=== PATIENT | male | born 1965 | race African-American/Black ===

== ENCOUNTER 2020-10-08 12:22 | Inpatient (IN) | payer OTHER ==
[~2020-10-08] VITALS: Ht 180.3 cm; Wt 78.0 kg
[~2020-10-08 12:22] MED LIST: CIPROFLOXACIN500 M1 PO; NORCO 5-325 TA1 EACH PO; ZOFRAN ODT4 MG PO
[2020-10-08 12:23] VITALS: BP 143/84
[2020-10-08 13:03] LABS: HEMOGLOBIN 12.3 gm/dL (14.0-18.0); WBC 9.2 thou/uL (4.0-11.0)
[2020-10-08 13:04] LABS: HEMATOCRIT 34.9 % (42.0-52.0); MCH 31.7 pg (26.0-34.0); MCHC 35.3 g/dL (28.0-37.0); MCV 89.8 fL (80.0-100.0); PLATELET COUNT 316 thou/uL (150-400); RBC 3.89 mil/uL (4.50-6.00); RDW 24.4 % (10.5-14.5)
[2020-10-08 13:39] LABS: CALCIUM 7.4 mg/dL (8.5-10.1); POTASSIUM 3.3 mmol/L (3.5-5.1)
[2020-10-08 13:46] LABS: ALBUMIN 1.2 g/dL (3.4-5.0); TOTAL BILIRUBIN 2.5 mg/dL (0.2-1.0); TOTAL PROTEIN 6.3 g/dL (6.4-8.2)
[2020-10-08 13:56] LABS: URINE BILIRUBIN 3+ (Negative); URINE BLOOD NEGATIVE (Negative); URINE CLARITY CLEAR; URINE COLOR BROWN; URINE GLUCOSE-RANDOM* TRACE (Negative); URINE KETONES TRACE (Negative); URINE LEUKOCYTES-REFLEX TRACE (Negative); URINE PROTEIN (DIPSTICK) 1+ (Negative); URINE SPECIFIC GRAVITY >= 1.030 (1.005-1.035)
[2020-10-08 13:58] LABS: ICTOTEST (BILI CONFIRMATORY) Positive (Negative); URINE NITRITE-REFLEX POSITIVE (Negative)
[2020-10-08 14:19] LABS: HYALINE CASTS 0-3 Few /LPF (None Seen); SQUAMOUS 4-10 Moderate /LPF (0-3)
[2020-10-08 14:20] LABS: AMORPHOUS URATES Few /LPF (None Seen); URINE RBC 1-2 Rare /HPF (NONE SEEN); URINE WBC-REFLEX 0-5 Rare /HPF (0-5)
[2020-10-08 14:48] VITALS: BP 139/88
[2020-10-08 15:01] LABS: ABSOLUTE NEUTROPHILS 6.5 thou/uL (1.4-8.2)
[2020-10-08 15:02] LABS: ANISOCYTOSIS 1+; PLATELET ESTIMATE NORMAL; TARGET CELLS 1+
[2020-10-08 15:45] VITALS: BP 143/83
[2020-10-08 16:04] VITALS: BP 145/85
--- NOTE | 2020-10-08 16:54 | NUR ---
PATIENT ARRIVED TO UNIT AT APPROX. 1600. VSS; C/O LOWER BACK PAIN. FLUIDS HUNG ON L AC & NO ISSUES. ABX ALSO INFUSING. PATIENT IS A&OX4 AND A LOW FALL RISK, HX. & EDUCATION COMPLETED. NEW ORDERS ACKNOWLEDED. ON REGULAR DIET BUT WILL BE NPO AFTER MIDNIGHT. PAIN CONTROLLED W PRN NORCO. VOICES NO FURTHER NEEDS. PARACENTESIS TO BE DONE TOMORROW. WILL CONTINUE TO MONITOR
--- NOTE | 2020-10-08 17:02 | NUR ---
55-year-old male presents to the ED on 10-08-20 with a history of hypertension currently not taking medication, tobacco use, excessive alcohol use. And complaints of persistent nausea, vomiting, abdominal discomfort. Patient reports intermittent symptoms of abdomen discomfort, nausea over the last few months. Patient reports her symptoms progressively gotten worse last couple days. CT abdomen revealed several bowel wall thickening, infection versus neoplastic process, moderate amount of abdominal ascites, nodular fat stranding throughout the upper mesentery concerning for peritoneal carcinomatosis. Per the patient and assessment the patient states he is not vaccinated. The patient has been admitted for Abdominal pain, nausea, vomiting, UTI, Hypokalemia, Elevated FFT's and bilirubin. Consult for GI has been placed. Thoracentesis planned for 10-09-20. Per ED assessment and MD interactions patient is A&O x4. His spouse is listed as Eduardo Lemus at [phone]. CM will continue to follow for discharge needs as plan of care by medical team is reviewed for discharge need.
[2020-10-08 17:25] LABS: INR 1.52; PROTIME 16.2 Seconds (10.5-12.1)
[2020-10-08 19:48] VITALS: BP 121/84
[2020-10-09 02:28] LABS: MCV 92.4 fL (80.0-100.0)
[2020-10-09 02:30] LABS: HEMATOCRIT 30.7 % (42.0-52.0); HEMOGLOBIN 11.1 gm/dL (14.0-18.0); MCH 33.3 pg (26.0-34.0); MCHC 36.1 g/dL (28.0-37.0); RBC 3.32 mil/uL (4.50-6.00); RDW 22.5 % (10.5-14.5); WBC 7.7 thou/uL (4.0-11.0)
[2020-10-09 02:36] LABS: PLATELET COUNT 150 thou/uL (150-400)
[2020-10-09 02:53] LABS: ALBUMIN 1.2 g/dL (3.4-5.0); CALCIUM 7.3 mg/dL (8.5-10.1); MAGNESIUM 1.5 mg/dL (1.8-2.4); POTASSIUM 3.7 mmol/L (3.5-5.1); TOTAL BILIRUBIN 2.1 mg/dL (0.2-1.0); TOTAL PROTEIN 6.4 g/dL (6.4-8.2)
[2020-10-09 03:24] LABS: ABSOLUTE NEUTROPHILS 4.6 thou/uL (1.4-8.2); ANISOCYTOSIS 3+; NUCLEATED RBCS 1 /100WBC; TARGET CELLS 3+
--- NOTE | 2020-10-09 03:44 | NUR ---
Today this pt has had stable VS and has had some stated pain in which it was taken care of with medication. He has been asleep for most of the night using the urinal at the bedside with no diarrhea this shift. He has been tolerating his fluids well and he has been NPO since midnight for his pending procedure later today.
[2020-10-09 08:45] VITALS: BP 124/80
[2020-10-09 09:00] VITALS: BP 105/62
[2020-10-09 10:00] VITALS: BP 122/72
[2020-10-09 10:04] LABS: CLARITY CLEAR; COLOR YELLOW; SOURCE ABDOMINAL; TOTAL VOLUME 60 mL
--- NOTE | 2020-10-09 11:16 | NUR ---
met with patient who admits with ETOH/Abd pain. 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 Lives in independent home with . He cont to drive. He is unsure if he has health insurance. Requested casemgt sp with . Sp with she reports she is unsure. She has a call into employment. She also works at same employment. She reports patient has no PCP. Gave [facility] and [facility].
[2020-10-09 11:19] LABS: BF NUCLEATED CELLS 228 /mm3; BF RBC 52 /mm3
[2020-10-09 13:16] LABS: BF MACROPHAGE 29 %; BF NEUTROPHILS 54 %
[2020-10-09 15:25] VITALS: BP 103/65
--- NOTE | 2020-10-09 17:21 | NUR ---
A/O X 4. Room air. AD MICHAELA. Cont B/B-urinal at bedside. Left AC IV patent, dressing dry, clean and intact. NS infusing @ 100 mls/hr. [place] last given for ABD pain @ 1630. Requested to "Step outside for some air" nurse explained to patient he's unable to do that during this time. He states he understands. New left upper arm nicotine patch placed. Patient has been itching throughout the day and nurse spoke with Dr. Huang and patient is not wanting to take anything for it. Itching has subsided. Patient to D/C home with HH per case managment tomorrow.
[2020-10-09 20:01] VITALS: BP 116/79
--- NOTE | 2020-10-10 04:19 | NUR ---
TODAY THIS PT HAS STATED SOME PAIN IN WHICH IT WAS TAKEN CARE OF WITH MEDICATION. HE HAS BEEN TOLERATING HIS FLUIDS WELL AND ASLEEP FOR MOST OF THE NIGHT. HE HAS BEEN OTHERWISE WALKING AROUND IN THE ROOM AND HAS PULLED OUT HIS IV BY ACCIDENT AND HE REFUSED REINSERTION I WILL REASSESS LATER THIS SHIFT. OTHERWISE HE AWAITS FOR THE NEXT PLAN.
[2020-10-10 06:22] LABS: HEMATOCRIT 30.2 % (42.0-52.0); HEMOGLOBIN 10.5 gm/dL (14.0-18.0); MCH 32.3 pg (26.0-34.0); MCHC 34.7 g/dL (28.0-37.0); MCV 93.1 fL (80.0-100.0); RBC 3.25 mil/uL (4.50-6.00); WBC 7.3 thou/uL (4.0-11.0)
[2020-10-10 06:39] LABS: ALBUMIN 1.3 g/dL (3.4-5.0); CALCIUM 7.1 mg/dL (8.5-10.1); CREATININE 1.2 mg/dL (0.7-1.3); POTASSIUM 3.5 mmol/L (3.5-5.1); TOTAL BILIRUBIN 1.7 mg/dL (0.2-1.0); TOTAL PROTEIN 6.8 g/dL (6.4-8.2)
[2020-10-10 08:59] LABS: SOURCE ABDOMINAL
[2020-10-10] MEDS ORDERED: HYDROXYZINE HCL25 M2 PO (10:20)
[2020-10-10] MEDS ORDERED: PROTONIX40 M2 PO (10:20)
[2020-10-10] MEDS ORDERED: ZOFRAN ODT4 MG PO (10:20)
[2020-10-10 10:32] VITALS: BP 116/79
--- NOTE | 2020-10-10 10:50 | NUR ---
Assumed pt care this am no IV access and refused for IV to be placed. Am meds not given pt was wanting to go ama early in the am. Dr. Huang visited, DC orders placed, instructions given to the pt and all prescriptions sent to the phaarmacy. POC followed with no signs or verblizations of distress noted. Pt is now dc.
[2020-10-10 19:06] LABS: BODY FLUID ALBUMIN 0.2 g/dL (Not Estab.); BODY FLUID AMYLASE 19 U/L (()); BODY FLUID GLUCOSE 65 mg/dL (()); BODY FLUID LDH 48 IU/L (()); BODY FLUID PROTEIN 0.8 g/dL (())
== END 2020-10-10 11:21 | disposition home health service (06) | DRG 383 ==
LOC: ER 12:22 → EROBS 14:41 → 4W 15:46
PROVIDERS: Nurse Practitioner; Nurse Practitioner Family; ADMIT Hospitalist; ATTEND Hospitalist
PROC: 0DB68ZX Excision of Stomach, Via Natural or Artificial Opening Endoscopic, Diagnostic (ICD-10-PCS; principal; 2020-10-09)
PROC: 0W9G3ZZ Drainage of Peritoneal Cavity, Percutaneous Approach (ICD-10-PCS; principal; 2020-10-09)
DX: K25.9 Gastric ulcer, unspecified as acute or chronic, without hemorrhage or perforation (principal); E43 Unspecified severe protein-calorie malnutrition; C78.6 Secondary malignant neoplasm of retroperitoneum and peritoneum; R18.8 Other ascites; N39.0 Urinary tract infection, site not specified; R18.0 Malignant ascites; K29.70 Gastritis, unspecified, without bleeding; R63.4 Abnormal weight loss; E87.6 Hypokalemia; R79.89 Other specified abnormal findings of blood chemistry; I10 Essential (primary) hypertension; F17.210 Nicotine dependence, cigarettes, uncomplicated; F10.10 Alcohol abuse, uncomplicated; Y90.9 Presence of alcohol in blood, level not specified; K44.9 Diaphragmatic hernia without obstruction or gangrene; E88.09 Other disorders of plasma-protein metabolism, not elsewhere classified; Z20.822 Contact with and (suspected) exposure to COVID-19; Z79.899 Other long term (current) drug therapy; Z68.24 Body mass index [BMI] 24.0-24.9, adult
CPT/HCPCS: 10040; 70005

== ENCOUNTER 2020-10-10 15:37 | Emergency (ER) | payer OTHER ==
[~2020-10-10] VITALS: Ht 180.3 cm; Wt 70.3 kg
[~2020-10-10 15:37] MED LIST changes: +HYDROXYZINE HCL25 M2 PO; +PROTONIX40 M2 PO
[2020-10-10 17:52] VITALS: BP 133/79
== END 2020-10-10 17:55 | disposition home or self-care (01) ==
LOC: ER 15:37
DX: R18.8 Other ascites (principal); R14.0 Abdominal distension (gaseous); I10 Essential (primary) hypertension; F17.200 Nicotine dependence, unspecified, uncomplicated; Z79.899 Other long term (current) drug therapy

== ENCOUNTER 2021-02-20 09:27 | Inpatient (IN) | payer OTHER ==
[~2021-02-20] VITALS: Ht 180.3 cm; Wt 68.0 kg
[2021-02-20 10:07] VITALS: BP 113/62
[2021-02-20 12:38] LABS: HEMATOCRIT 31.2 % (42.0-52.0); HEMOGLOBIN 10.4 gm/dL (14.0-18.0); MCH 32.2 pg (26.0-34.0); MCHC 33.4 g/dL (28.0-37.0); MCV 96.2 fL (80.0-100.0); RBC 3.24 mil/uL (4.50-6.00); RDW 17.9 % (10.5-14.5); WBC 10.3 thou/uL (4.0-11.0)
[2021-02-20 12:50] LABS: ANION GAP 10 mmol/L (7-16); BUN 63 mg/dL (7-18); CALCIUM 8.5 mg/dL (8.5-10.1); CHLORIDE 103 mmol/L (98-107); CO2 21 mmol/L (21-32); CREATININE 3.3 mg/dL (0.7-1.3); GLUCOSE 116 mg/dL (74-106); POTASSIUM 3.6 mmol/L (3.5-5.1); SODIUM 134 mmol/L (136-145)
[2021-02-20 12:56] LABS: URINE BILIRUBIN NEGATIVE (Negative); URINE BLOOD NEGATIVE (Negative); URINE CLARITY CLEAR; URINE COLOR YELLOW; URINE GLUCOSE-RANDOM* NEGATIVE (Negative); URINE KETONES NEGATIVE (Negative); URINE LEUKOCYTES-REFLEX TRACE (Negative); URINE NITRITE-REFLEX NEGATIVE (Negative); URINE PROTEIN (DIPSTICK) NEGATIVE (Negative); URINE SPECIFIC GRAVITY 1.025 (1.005-1.035); URINE UROBILINOGEN 0.2 E.U./dl (0.2-1.0)
[2021-02-20 13:01] LABS: ALBUMIN 1.5 g/dL (3.4-5.0); LIPASE 175 U/L (73-393); MAGNESIUM 2.3 mg/dL (1.8-2.4); PHOSPHORUS 4.9 mg/dL (2.6-4.7); SGOT 51 U/L (15-37); SGPT 20 U/L (16-63); TOTAL BILIRUBIN 1.4 mg/dL (0.2-1.0); TOTAL PROTEIN 7.3 g/dL (6.4-8.2)
[2021-02-20 13:03] LABS: SALICYLATE < 2.8 mg/dL (2.8-20.0)
[2021-02-20 13:04] LABS: AMP/METHAMP Negative (Negative); BARBITURATES Negative (Negative); BENZODIAZEPINES Negative (Negative); COCAINE Negative (Negative); METHADONE Negative (Negative); OPIATES POSITIVE (Negative); PCP Negative (Negative)
[2021-02-20 20:27] VITALS: BP 104/53
[2021-02-21] VITALS: BP 118/71
[2021-02-21 04:00] VITALS: BP 118/71
[2021-02-21 05:07] LABS: HEMATOCRIT 29.7 % (42.0-52.0); MCH 32.7 pg (26.0-34.0); MCHC 33.8 g/dL (28.0-37.0); RBC 3.07 mil/uL (4.50-6.00); RDW 17.8 % (10.5-14.5); WBC 9.2 thou/uL (4.0-11.0)
[2021-02-21 05:22] LABS: CALCIUM 8.5 mg/dL (8.5-10.1); POTASSIUM 4.5 mmol/L (3.5-5.1)
[2021-02-21 05:29] LABS: CREATININE 2.1 mg/dL (0.7-1.3)
[2021-02-21 08:00] VITALS: BP 118/71
--- NOTE | 2021-02-21 09:44 | EKG ---
[address] [address] ELECTROCARDIOGRAM REPORT Name: OSCAR MCCARTHY Room #: 170-17 ADM IN M.R.#: [id number] Admission: 02/20/21 Attend Phys: Bert Valdez MD Discharge: Date of : 65 Report #: [id number] [facility] ED Test Date: 2021-02-20 Test Time: 12:18:46 Pat Name: OSCAR MCCARTHY Department: Room: 170 Gender: M Shotblast Operator: ana maria : 1965 Requested By: Samuel Hassan Order Number: [id number] MD: Mitch Sepulveda Measurements Intervals [place] Rate: 80 P: 48 [place]: 145 QRS: 4 QRSD: 90 T: 31 QT: 384 QTc: 443 Interpretive Statements Sinus rhythm Atrial premature complex No previous ECG available for comparison Electronically Signed On 02-21-2021 9:44:28 DEBURRING TECHNICIAN by Mitch Sepulveda [email or web address] <ELECTRONICALLY SIGNED> By: Mitch Sepulveda MD, [facility] 02/21/21 0944 1218 1218 Mitch Sepulveda MD, FAC /EPI
--- NOTE | 2021-02-21 11:05 | NUR ---
Pt had non injury fall. pt VS stable. family at bedside. Pt denies hitting head and also denies pain. pt re educated on using call light when needing help, pt vebalizes understanding. Pt bed alarm currently set. Dr. Valdez notified.
[2021-02-21 15:26] LABS: % SATURATION 134 % (20-39); IRON 102 ug/dL (65-175); TIBC 76 ug/dL (250-450)
[2021-02-21 21:06] LABS: INR 1.47; PROTIME 15.7 Seconds (10.5-12.1)
[2021-02-21 22:09] VITALS: BP 92/52
--- NOTE | 2021-02-22 05:26 | NUR ---
PT SLEPT MOST OF THE NIGHT. RESP EVEN AND UNLABORED. IVF INFUSING ORDERED. VSS. AFEBRILE. HE HAD AT LEAST 2 LOOSE BOWEL MOVEMENTS THIS SHIFT. SCHEDULED LACTULOSE GIVEN ORDERED. NO NEW COMPLAINTS.
[2021-02-22 10:16] VITALS: BP 132/72
[2021-02-22 12:54] LABS: BF NUCLEATED CELLS 129 /mm3; BF RBC 421 /mm3
[2021-02-22 13:10] VITALS: BP 130/77
[2021-02-22 15:07] LABS: HAV IgM AB (ANTI-HAV IgM) Negative (Negative); HEPATITIS B SURFACE AG Negative (Negative)
[2021-02-22 15:18] LABS: BF MACROPHAGE 32 %; BF NEUTROPHILS 51 %; CLARITY CLEAR; COLOR YELLOW; SOURCE ABDOMINAL; TOTAL VOLUME 67 mL
[2021-02-23] VITALS (7 sets, daily range): BP systolic 108–122; BP diastolic 56–74
[2021-02-23 07:25] LABS: HEMATOCRIT 20.2 % (42.0-52.0); MCH 32.6 pg (26.0-34.0); MCHC 33.6 g/dL (28.0-37.0); MCV 97.2 fL (80.0-100.0); RBC 2.08 mil/uL (4.50-6.00); RDW 17.6 % (10.5-14.5); WBC 10.5 thou/uL (4.0-11.0)
[2021-02-23 07:26] LABS: HEMOGLOBIN 6.8 gm/dL (14.0-18.0)
[2021-02-23 07:39] LABS: CREATININE 1.2 mg/dL (0.7-1.3); POTASSIUM 3.8 mmol/L (3.5-5.1)
--- NOTE | 2021-02-23 07:41 | NUR ---
PT ADMITTED TO [address] [place] [address] FROM ER HOLDING. 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 PT HAS LOST OVER 20 POUNDS IN THE PAST 3 MONTHS. HE HAS NAUSEA AND VOMITING AFTER EATING AND HAS NOT BEEN ABLE TO KEEP MUCH DOWN. PT STATES THAT HE HAS BEEN LIVING ON SOFT THINGS LIKE SOUP. HE STATES THAT HE HAS BEEN VERY WEAK. HE HAS HAD INCREASED CONFUSION AND TROUBLE WALKING. HIS AMMONIA LEVEL HAS BEEN VERY ELEVATED AND PT WAS ON SEVERAL SCHEDULED DOSES OF LACTULOSE. PT HAD SEVERAL VERY LOOSE BMS DURING THE NIGHT ON THE BSC WITH ASST. STOOL SAMPLE SENT TO THE LAB FOR H PYLORI TESTING. PARACENTESIS COMPLETED DURING THE DAY. DRESSING ON R ABD DRY AND INTACT. PT VOIDING LARGE AMOUNT OF URINE. PT TOLERATING FLUIDS. STAT MRI ORDERED EARLY YESTERDAY AFTERNOON WAS NOT DONE. CONTACTED MRI LAST NIGHT TO SEE IF HE NEEDED TO GO AND GET MRI COMPLETED. PER HUGO IN RADIOLOGY JAMARCUS SPOKE TO DR ALEJANDRA. THEY WERE UNABLE TO COMPLETE MRI YESTERDAY BUT PLAN TO GET IT DONE TODAY. DR ALEJANDRA IS AWARE. GLADYS LAUGHLIN NOTIFIED AND UPDATED REGARDING MRI PLANS. PT RESTING WELL. IVF RUNNING THROUGH R WRIST PIV. WILL CONTINUE TO MONITOR FREQUENTLY.
[2021-02-23 09:06] LABS: SOURCE ABDOMINAL
[2021-02-23 13:07] LABS: HEPATITIS C VIRUS AB 0.2
[2021-02-23 14:07] LABS: BODY FLUID ALBUMIN < 0.2 g/dL (Not Estab.); BODY FLUID GLUCOSE 98 mg/dL (()); BODY FLUID LDH 30 IU/L (()); BODY FLUID PROTEIN 0.6 g/dL (())
--- NOTE | 2021-02-23 16:04 | NUR ---
Met with patient who admits with stroke like symptoms. 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 He resides in home with spouse in town home. 2 steps to enter from garage and flight of steps to second floor. works days. Patient reports he has insurance through employment, he does not have cards. he reports is speaking with his HR. he reports he signed for all benefits. 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 However his left hand shakes at times. Patient to have therapy evals and planned MRI. Reviewed role of casemgt cont to follow.
--- NOTE | 2021-02-23 17:36 | NUR ---
ASSUMED PT CARE AT 1700 FROM DAY NIGHT. PT SIGNED CONSENT FOR BLOOD TRANSFUSION. WILL TRANSFUSE 1 UNIT OF BLOOD. PT AT THE BEDSIDE.
[2021-02-23 21:50] LABS: BASOPHILS 0.4 % (0.0-2.0); EOSINOPHILS 3.3 % (0.0-3.0); HEMATOCRIT 24.3 % (42.0-52.0); HEMOGLOBIN 8.1 gm/dL (14.0-18.0); LYMPHOCYTES 26.5 % (24.0-44.0); MCH 32.1 pg (26.0-34.0); MCHC 33.3 g/dL (28.0-37.0); MCV 96.4 fL (80.0-100.0); MONOCYTES 9.8 % (1.0-8.0); PLATELET COUNT 105 thou/uL (150-400); RBC 2.52 mil/uL (4.50-6.00); RDW 17.3 % (10.5-14.5)
--- NOTE | 2021-02-24 02:53 | NUR ---
BLOOD TRANSFUSION COMPLETED DOCUMENTED. HGB RECHECKED AND CURRENTLY WNL. PT IS A/O X4 AND IS UP WITH SBA. PLEASANT AND COOPERATIVE. HEPARIN HELD BY PHARMACY DUE TO HGB INSTABILITY. FALL PRECAUTIONS IN PLACE, CALL LIGHT IS WITHIN REACH.
[2021-02-24 06:20] LABS: CALCIUM 7.8 mg/dL (8.5-10.1); CREATININE 1.1 mg/dL (0.7-1.3); POTASSIUM 3.8 mmol/L (3.5-5.1)
[2021-02-24 07:34] LABS: HEMATOCRIT 23.9 % (42.0-52.0); HEMOGLOBIN 7.7 gm/dL (14.0-18.0); MCH 31.7 pg (26.0-34.0); MCHC 32.2 g/dL (28.0-37.0); MCV 98.3 fL (80.0-100.0); RBC 2.44 mil/uL (4.50-6.00); RDW 18.1 % (10.5-14.5); WBC 7.4 thou/uL (4.0-11.0)
[2021-02-24 09:06] VITALS: BP 101/60
[2021-02-24 13:24] VITALS: BP 101/60
--- NOTE | 2021-02-24 13:54 | NUR ---
ASSUMED PT CARE THIS AM. PT HAS IV SITE ON R WRIST. PT HAS TELE MONITOR ON. PT TOLERATED DIET WELL. PER GI, PT WILL HAVE EGD AND COLONOSCOPY TOMORROW. PHYSICAL THERAPY WAS WORKING WITH PT THIS ALMA. PT IS ON ROOM AIR. WILL CONTINUE TO MONITOR PT. FOLLOW POC.
[2021-02-24 17:12] VITALS: BP 107/69
[2021-02-24 19:54] VITALS: BP 117/63
--- NOTE | 2021-02-25 01:58 | NUR ---
PT IS A/O X4 AND IS UP AD MICHAELA. VSS. PT IS CURRENTLY NPO AWAITING PROCEDURE IN THE AM. PT IS PLEASANT AND COOPERATIVE. CALLS OUT APPROPRIATELY FOR ASSISTANCE. CALL LIGHT IS WITHIN REACH.
[2021-02-25 07:36] VITALS: BP 104/55
[2021-02-25 12:17] VITALS: BP 104/62
[2021-02-25] MEDS ORDERED: PROTONIX40 M2 PO (15:27)
--- NOTE | 2021-02-25 17:54 | NUR ---
PATIENT SCHEDULED FOR EGD/COLONOSCOPY TODAY. C/O PAIN IN LEFT ARM, GIVEN ORAL PAIN MEDS. REDRESSED ARM PER PATIENT WISHES. IV FLUIDS DC'D, REGULAR DIET RESUMED AFTER TESTING. PT TO SEE PATIENT IN AM. POSSIBLE DC TOMORROW. VSS. NO ACTIVE VISIBLE BLEEDING IN STOOL. NO EMESIS/NAUSEA
--- NOTE | 2021-02-25 18:47 | NUR ---
5N evaled and accepting but patient has no benefits for outpatient, inpatient home health therapy. Sp with utilization review who had printout of coverage. Took copy to patient and reviewed no therapy benefits. Patient not dc today likely in a.m.
[2021-02-25 22:22] VITALS: BP 137/75
[2021-02-26 04:00] LABS: HEMATOCRIT 24.1 % (42.0-52.0); HEMOGLOBIN 8.1 gm/dL (14.0-18.0); MCH 32.6 pg (26.0-34.0); MCHC 33.6 g/dL (28.0-37.0); RBC 2.49 mil/uL (4.50-6.00); RDW 17.4 % (10.5-14.5); WBC 5.9 thou/uL (4.0-11.0)
[2021-02-26 04:54] LABS: CALCIUM 7.7 mg/dL (8.5-10.1); POTASSIUM 3.8 mmol/L (3.5-5.1)
--- NOTE | 2021-02-26 06:00 | NUR ---
Pt. rested quietly at intervals during the night when checked on during frequent rounds. He was given po pain meds (see emar) for c/o arm pain with some relief. Bed alarm is on.
[2021-02-26 08:08] VITALS: BP 115/76
[2021-02-26] MEDS ORDERED: LACTULOSE20 GM/30 M PO (10:42)
--- NOTE | 2021-02-26 11:35 | PATH ---
[facility] [place] [address] PATHOLOGY RPT PROCEDURE Name: OSCAR MCCARTHY Room #: 448-P ADM IN M.R.#: [id number] Admission: 02/20/21 Date of : 65 Discharge: Report #: [id number] Path Case #: [id number] Note [facility] Accession Number: [id number] TESTS RESULT FLAG UNITS REF RANGE LAB Clinician Provided Cytology Information No. of containers..01 Other (Miscellaneous) Source: PERITONEAL DIAGNOSIS: PERITONEAL NEGATIVE FOR MALIGNANT CELLS. MESOTHELIAL CELLS ARE PRESENT. SCANT CELLULARITY. THIS INTERPRETATION INCLUDES EVALUATION OF A CELL BLOCK. COMMENT, SUGGEST CLINICAL CORRELATION Signed out by: 01 Lee Arteaga MD, Pathologist NPI- [id number] Performed by: 01 Gertrude Jarrell Commercial Real Estate Appraiser ([facility]) Gross description: 01 10ML, YELLOW, HAZY /LCS 02/23/2021 0222 Local FLAG LEGEND: L-Low Normal,H-High Normal,LL-Alert Low,HH-Alert High <-Panic Low,>-Panic High,A-Abnormal,AA-Critical Abnormal Performed at: [address] [place] [address] Lee Arteaga MD, Specimen Comment: A courtesy copy of this report has been sent to [phone] Specimen Comment: Report sent to DR. ALEJANDRA Specimen Comment: A duplicate report has been generated due to demographic updates. Performed at: [address], [place], [place] [id number] MD Lee Arteaga MD Phone: [phone]
--- NOTE | 2021-02-26 13:20 | 2DMMODE ---
[facility] [place] [address] 2 D/M-MODE ECHOCARDIOGRAM Name: OSCAR MCCARTHY Room #: 448-P ADM IN .R.#: [id number] Admission: 02/20/21 Attend Phys: Bert Valdez MD Discharge: Date of : 65 Report #: [id number] THIS REPORT FOR: cc: YANI - No family physician/PCP FAM - No family physician/PCP Anupam Styles MD ~ APPROVED REPORT Study performed: 02/26/2021 11:20:21 EXAM: Comprehensive 2D, Doppler, and color-flow Echocardiogram Patient Location: In-Patient Room #: 448 Status: routine BSA: 1.90 HR: 86 bpm BP: 137/75 mmHg Rhythm: NSR Other Information Study Quality: Good Indications CONFUSION AND WEAKNESS 2D Dimensions IVSd: 11.07 (7-11mm) LVOT Diam: 19.42 (18-24mm) LVDd: 45.72 mm PWd: 10.12 (7-11mm) Ascending Ao: 33.59 (22-36mm) LVDs: 29.25 (25-40mm) Left Atrium: 42.67 (27-40mm) Aortic Root: 28.72 mm LV Single Plane 4CH: 62.42 % Volumes Left Atrial Volume (Systole) Single Plane 4CH: 62.24 mL Single Plane 2CH: 41.78 mL Biplane LA Volume: 56.00 mL LA ESV Index: 29.00 mL/m2 Aortic Valve AoV Peak Rick.: 1.70 m/s AO Peak Gr.: 11.60 mmHg LVOT Max P.41 mmHg LVOT Max V: 1.05 m/s GER Vmax: 1.83 cm2 [facility] [address] [place] [address] 2 D/M-MODE ECHOCARDIOGRAM Name: OSCAR MCCARTHY Room #: 448-P [facility].#: [id number] Admission: 02/20/21 Attend Phys: Bert Valdez MD Discharge: Date of : 65 Report #: [id number] Mitral Valve E/A Ratio: 1.6 MV Decel. Time: 1312.97 ms MV E Max Rick.: 0.62 m/s MV A Rick.: 0.38 m/s MV PHT: 380.76 ms Pulmonary Valve PV Peak Rick.: 1.03 m/s PV Peak Gr.: 4.29 mmHg Tricuspid Valve TR Peak Rick.: 3.01 m/s RAP Estimate: 7.00 mmHg TR Peak Gr.: 36.17 mmHg RVSP: 43.00 mmHg Left Ventricle The left ventricle is normal size. There is normal LV segmental wall motion. Borderline concentric left ventricular hypertrophy. The left ventricular systolic function is normal. The left ventricular ejection fraction is within the normal range. LVEF is 55-60%. Right Ventricle The right ventricle is normal size. The right ventricular systolic function is normal. Atria The left atrium size is normal. The right atrium size is normal. Aortic Valve Aortic valve is trileaflet. No aortic regurgitation is present. There is no aortic valvular stenosis. Mitral Valve The mitral valve is normal in structure. Trace to mild mitral regurgitation. No evidence of mitral valve stenosis. Tricuspid Valve The tricuspid valve is normal in structure. Mild tricuspid regurgitation. PAP 43 mmHg. Pulmonic Valve The pulmonary valve is normal in structure. Mild pulmonic regurgitation. Great Vessels [facility] [address] [place] [address] 2 D/M-MODE ECHOCARDIOGRAM Name: OSCAR MCCARTHY Room #: 448-P ADM IN M.R.#: [id number] Admission: 02/20/21 Attend Phys: Bert Valdez MD Discharge: Date of : 65 Report #: [id number] The aortic root is normal in size. IVC is normal in size and collapses >50% with inspiration. Pericardium There is no pericardial effusion. There is no pleural effusion. <Conclusion> The left ventricle is normal size. Borderline concentric left ventricular hypertrophy. LVEF is 55-60%. The right ventricle is normal size. The left atrium size is normal. Aortic valve is trileaflet. The mitral valve is normal in structure. Trace to mild mitral regurgitation. The tricuspid valve is normal in structure. Mild tricuspid regurgitation. PAP 43 mmHg. The pulmonary valve is normal in structure. Mild pulmonic regurgitation. The aortic root is normal in size. There is no pericardial effusion. <ELECTRONICALLY SIGNED> By: Anupam Styles MD 02/26/21 1320 19 132 Anupam Styles MD /INF
== END 2021-02-26 14:27 | disposition home or self-care (01) | DRG 432 ==
LOC: ER 09:27 → EROBS 15:25 → 4S 15:25 → EROBS 02-21 01:05 → 4S 02-22 19:36
PROVIDERS: Emergency Medicine; Internal Medicine; ADMIT Hospitalist; ATTEND Hospitalist
PROC: 0W9G3ZZ Drainage of Peritoneal Cavity, Percutaneous Approach (ICD-10-PCS; principal; 2021-02-22)
PROC: 30233N1 Transfusion of Nonautologous Red Blood Cells into Peripheral Vein, Percutaneous Approach (ICD-10-PCS; 2021-02-23)
PROC: 0DJD8ZZ Inspection of Lower Intestinal Tract, Via Natural or Artificial Opening Endoscopic (ICD-10-PCS; 2021-02-25)
PROC: 0DB68ZX Excision of Stomach, Via Natural or Artificial Opening Endoscopic, Diagnostic (ICD-10-PCS; 2021-02-25)
DX: K74.60 Unspecified cirrhosis of liver (principal); G93.41 Metabolic encephalopathy; E43 Unspecified severe protein-calorie malnutrition; K25.4 Chronic or unspecified gastric ulcer with hemorrhage; K29.71 Gastritis, unspecified, with bleeding; D62 Acute posthemorrhagic anemia; N17.9 Acute kidney failure, unspecified; R18.8 Other ascites; I85.10 Secondary esophageal varices without bleeding; R26.9 Unspecified abnormalities of gait and mobility; K63.5 Polyp of colon; K44.9 Diaphragmatic hernia without obstruction or gangrene; R93.5 Abnormal findings on diagnostic imaging of other abdominal regions, including retroperitoneum; K72.90 Hepatic failure, unspecified without coma; I10 Essential (primary) hypertension; F17.210 Nicotine dependence, cigarettes, uncomplicated; F10.10 Alcohol abuse, uncomplicated; R47.1 Dysarthria and anarthria; Z68.20 Body mass index [BMI] 20.0-20.9, adult; Z79.899 Other long term (current) drug therapy; Z79.1 Long term (current) use of non-steroidal anti-inflammatories (NSAID); I69.30 Unspecified sequelae of cerebral infarction
CPT/HCPCS: 10100; 10195; 62110; 62900; 70005